=== PATIENT | female | born 1990 | race Asian ===

== ENCOUNTER 2022-05-27 12:57 | Outpatient (CLI) | payer MEDICAID | END 2022-05-27 12:58 | disposition home or self-care (01) | LOC: BICMAMMO 12:57 | PROVIDERS: ATTEND Nurse Practitioner Women's Health | DX: Z12.31 Encounter for screening mammogram for malignant neoplasm of breast (principal); Z80.3 Family history of malignant neoplasm of breast; N64.89 Other specified disorders of breast | CPT/HCPCS: 77067 ==